=== PATIENT | male | born 1990 | race Caucasian/White ===

== ENCOUNTER 2018-07-14 11:59 | Emergency (ER) | END 2018-07-14 14:10 | disposition home or self-care (01) ==

== ENCOUNTER 2018-08-31 10:31 | Emergency (ER) | END 2018-08-31 11:14 | disposition home or self-care (01) ==

== ENCOUNTER 2018-10-26 13:02 | Emergency (ER) | END 2018-10-26 14:20 | disposition home or self-care (01) ==

== ENCOUNTER 2019-01-12 11:55 | Emergency (ER) | payer OTHER ==
[~2019-01-12] VITALS: Ht 175.3 cm; Wt 88.0 kg
[~2019-01-12 11:55] MED LIST: CETI10CA PO; FLUT9.9S NASAL; GABA-526 PO; GABA-528 PO; GUAI5SYR2 PO; IBUP-1542 PO; LYRI100 PO; MED4DP PO
[2019-01-12 11:58] VITALS: BP 131/88; PULSE 81; RESP 20; Ht 175.3 cm; Wt 88.0 kg
[2019-01-12] MEDS ORDERED: ESCI20TA PO (14:49)
[2019-01-12] MEDS ORDERED: GABA-528 PO (14:49)
--- NOTE | 2019-01-12 14:59 | ERD ---
ER Documentation Chief Complaint Chief Complaint Patient here for medication refill HPI 28-year-old male presenting form medication refill of his HIV medications. Patient is asking for a Biktarvy Daily medicine, gabapentin 800 mg twice daily and Lexapro 20 mg daily. Patient last took his medication yesterday. Patient has positive HIV and states his viral count is around 30,000 currently. Patient does have a HIV specialist however missed his last appointment and is unable to get in before January 23. He denies any other medical problems at this time. NKDA. Surgical history is for her surgery as a child. Social history smokes 7 cigarettes a day. ROS All systems reviewed and are negative except as per history of present illness. Medications Home Meds Active Scripts Escitalopram Oxalate* (Lexapro*) 20 Mg Tablet, 20 MG PO DAILY, #30 TAB Prov:RUFUS KASPER PA-C 01/12/19 Gabapentin* (Gabapentin*) 800 Mg Tablet, 800 MG PO BID, #60 TAB Prov:RUFUS KASPER PA-C 01/12/19 Gabapentin* (Gabapentin*) 600 Mg Tablet, 600 MG PO TID for Pain for 30 Days, #90 TAB Prov:BULL SNYDER 10/26/18 Gabapentin* (Gabapentin*) 800 Mg Tablet, 800 MG PO BID, #30 TAB Prov:RICHARD HECTOR PA-C 08/31/18 Guaifenesin-Dextromethorphan* (Robitussin* DM) 100MG/10MG/5ML Syrup, 10 ML PO Q6H PRN for COUGH for 5 Days, ML Prov:RICHARD HECTOR PA-C 08/31/18 Fluticasone Propionate (Flonase Allergy Relief) 9.9 Ml [place].susp, 2 SPRAY NASAL DAILY, #1 BOTTLE TO EACH NOSTRIL Prov:RICHARD HECTOR PA-C 08/31/18 Cetirizine Hcl* (Zyrtec*) 10 Mg Capsule, 10 MG PO DAILY, #14 TAB.CHEW Prov:RICHARD HECTOR PA-C 08/31/18 Pregabalin* (Lyrica*) 100 Mg Capsule, 100 MG PO DAILY for 15 Days, CAP Prov:RICHARD HECTOR PA-C 08/31/18 Ibuprofen* (Motrin*) 600 Mg Tab, 600 MG PO Q6, #30 TAB Prov:GETACHEW KAY MILAGROSJay JayEarl 07/14/18 Methylprednisolone* (Medrol* DOSE PACK) 4 Mg/Dose-Pack Tab.ds.pk, 4 MG PO . DIRECTED for 5 Days, PACKET Prov:GETACHEW KAY MILAGROSJay JayEarl 07/14/18 Gabapentin* (Gabapentin*) 600 Mg Tablet, 600 MG PO TID, #90 TAB Prov:GETACHEW KAY MILAGROSSimon 07/14/18 Allergies Allergies: Coded Allergies: No Known Allergy (Unverified , 07/14/18) PMhx/Soc History of Surgery: No Anesthesia Reaction: No Hx Neurological Disorder: No Hx Respiratory Disorders: No Hx Cardiac Disorders: No Hx Psychiatric Problems: No Hx Miscellaneous Medical Probl: Yes (lower back pain, sciatica, HIV+) Hx Alcohol Use: No Hx Substance Use: No Hx Tobacco Use: No Smoking Status: Never smoker FmHx Family History: No diabetes, No coronary disease, No other Physical Exam Vitals Vital Signs Date Temp Pulse Resp B/P (MAP) Pulse Ox O2 O2 Flow FiO2 Time Delivery Rate 01/12/19 98.8 81 20 131/88 98 11:58 (102) Physical Exam GENERAL: The patient is well-appearing, well-nourished, in no acute distress HEENT: Atraumatic. Conjunctivae are pink. Pupils equal, round, and reactive to light. There is no scleral icterus. Tympanic membranes clear bilaterally. Oropharynx clear. NECK: C-spine is soft and supple. There is no meningismus. There is no cervical lymphadenopathy. CHEST: Clear to auscultation bilaterally. There are no rales, wheezes or rhonchi. HEART: Regular rate and rhythm. No murmurs, clicks, rubs or gallops. Procedures/MDM MDM: 28-year-old male presenting for medication refill. I have low suspicion for infectious etiology. Patient will be discharged with medication refill. Patient is told to keep his appointment with primary doctor as previously prescribed. Patient is told symptoms change or worsen to return immediately to the ER. All questions answered at this Departure Diagnosis: Primary Impression: Encounter for medication refill Condition: Stable Patient Instructions: Taking Medicine Safely Referrals: [facility] YOU HAVE RECEIVED A MEDICAL SCREENING EXAM AND THE RESULTS INDICATE THAT YOU DO NOT HAVE A CONDITION THAT REQUIRES URGENT TREATMENT IN THE EMERGENCY DEPARTMENT. FURTHER EVALUATION AND TREATMENT OF YOUR CONDITION CAN WAIT UNTIL YOU ARE SEEN IN YOUR DOCTORS OFFICE WITHIN THE NEXT 1-2 DAYS. IT IS YOUR RESPONSIBILITY TO MAKE AN APPOINTMENT FOR FOLOW-UP CARE. IF YOU HAVE A PRIMARY DOCTOR --you should call your primary doctor and schedule an appointment IF YOU DO NOT HAVE A PRIMARY DOCTOR YOU CAN CALL OUR PHYSICIAN REFERRAL HOTLINE AT IF YOU CAN NOT AFFORD TO SEE A PHYSICIAN YOU CAN CHOSE FROM THE FOLLOWING [facility] [address] [facility] [address] [address] [facility] [address] [facility] [address] [facility] [address] [facility]. [facility] [address] [facility]. [facility]. [address] Additional Instructions: FOLLOW UP WITH YOUR PRIMARY CARE PHYSICIAN TOMORROW.Return to this facility if you are not improving as expected. RUFUS KASPER PA-C Jan 12, 2019 14:59
== END 2019-01-12 15:19 | disposition home or self-care (01) ==
LOC: FTE 11:55 → E/R 15:19
DX: Z76.0 Encounter for issue of repeat prescription (principal); F17.210 Nicotine dependence, cigarettes, uncomplicated; Z21 Asymptomatic human immunodeficiency virus [HIV] infection status
CPT/HCPCS: 99281

== ENCOUNTER 2019-02-18 10:08 | Emergency (ER) | payer OTHER ==
[~2019-02-18] VITALS: Ht 188 cm; Wt 90.0 kg
[~2019-02-18 10:08] MED LIST changes: +ESCI20TA PO
[2019-02-18 10:13] VITALS: BP 151/96; PULSE 103; RESP 20; Ht 188 cm; Wt 90.0 kg
[2019-02-18] MEDS ORDERED: IBUP-1542 PO (10:40)
[2019-02-18] MEDS ORDERED: ESCI20TA PO (10:40)
[2019-02-18] MEDS ORDERED: GABA300C16 PO (10:40)
--- NOTE | 2019-02-18 10:43 | ERD ---
ER Documentation Chief Complaint Chief Complaint MEDICATION REFILL - HIV MEDICATION HPI 28 male presents the emergency department requesting a refill of his HIV medications. Patient has no acute complaints at this time. ROS All systems reviewed and are negative except as per history of present illness. Medications Home Meds Active Scripts Ibuprofen* (Motrin*) 600 Mg Tab, 600 MG PO Q6H PRN for PAIN AND OR ELEVATED TEMP, #30 TAB Prov:MICKEY MUNROE 02/18/19 Gabapentin* (Gabapentin*) 300 Mg Capsule, 300 MG PO TID, #90 CAP Prov:MICKEY MUNROE 02/18/19 Escitalopram Oxalate* (Lexapro*) 20 Mg Tablet, 20 MG PO DAILY, #30 TAB Prov:MICKEY MUNROE 02/18/19 Escitalopram Oxalate* (Lexapro*) 20 Mg Tablet, 20 MG PO DAILY, #30 TAB Prov:RUFUS KASPER PA-C 01/12/19 Gabapentin* (Gabapentin*) 800 Mg Tablet, 800 MG PO BID, #60 TAB Prov:RUFUS KASPER PA-C 01/12/19 Gabapentin* (Gabapentin*) 600 Mg Tablet, 600 MG PO TID for Pain for 30 Days, #90 TAB Prov:BULL SNYDER 10/26/18 Gabapentin* (Gabapentin*) 800 Mg Tablet, 800 MG PO BID, #30 TAB Prov:RICHARD HECTOR PA-C 08/31/18 Guaifenesin-Dextromethorphan* (Robitussin* DM) 100MG/10MG/5ML Syrup, 10 ML PO Q6H PRN for COUGH for 5 Days, ML Prov:RICHARD HECTOR PA-C 08/31/18 Fluticasone Propionate (Flonase Allergy Relief) 9.9 Ml [place].susp, 2 SPRAY NASAL DAILY, #1 BOTTLE TO EACH NOSTRIL Prov:RICHARD HECTOR PA-C 08/31/18 Cetirizine Hcl* (Zyrtec*) 10 Mg Capsule, 10 MG PO DAILY, #14 TAB.CHEW Prov:RICHARD HECTOR PA-C 08/31/18 Pregabalin* (Lyrica*) 100 Mg Capsule, 100 MG PO DAILY for 15 Days, CAP Prov:RICHARD HECTOREzequiel SPANN 08/31/18 Ibuprofen* (Motrin*) 600 Mg Tab, 600 MG PO Q6, #30 TAB Prov:GETACHEW KAY PA-C 07/14/18 Methylprednisolone* (Medrol* DOSE PACK) 4 Mg/Dose-Pack Tab.ds.pk, 4 MG PO . DIRECTED for 5 Days, PACKET Prov:GETACHEW KAY PA-C 07/14/18 Gabapentin* (Gabapentin*) 600 Mg Tablet, 600 MG PO TID, #90 TAB Prov:ELIZA GETACHEW SPANN 07/14/18 Allergies Allergies: Coded Allergies: No Known Allergy (Unverified , 07/14/18) PMhx/Soc History of Surgery: No Anesthesia Reaction: No Hx Neurological Disorder: No Hx Respiratory Disorders: No Hx Cardiac Disorders: No Hx Psychiatric Problems: No Hx Miscellaneous Medical Probl: Yes (lower back pain, sciatica, HIV+) Hx Alcohol Use: No Hx Substance Use: No Hx Tobacco Use: No Physical Exam Vitals Vital Signs Date Temp Pulse Resp B/P (MAP) Pulse Ox O2 O2 Flow FiO2 Time Delivery Rate 02/18/19 98.8 103 20 151/96 100 10:13 (114) Physical Exam General: well developed, well nourished, in no distress. Neuro: Normal speech, gait, balance Procedures/MDM Patient was taken to a room, seen and examined Medical decision making: Medical screening examination was completed showing no evidence of emergent medical condition. His medications were refilled for him and he was discharged home. Departure Diagnosis: Primary Impression: Encounter for medication refill Condition: Stable Patient Instructions: Taking Medicine Safely MICKEY MUNROE Feb 18, 2019 10:43
== END 2019-02-18 10:45 | disposition home or self-care (01) ==
LOC: FTE 10:08
DX: Z76.0 Encounter for issue of repeat prescription (principal); Z21 Asymptomatic human immunodeficiency virus [HIV] infection status
CPT/HCPCS: 99281

== ENCOUNTER 2019-04-03 09:15 | Emergency (ER) | payer OTHER ==
[~2019-04-03] VITALS: Ht 188 cm; Wt 89.0 kg
[~2019-04-03 09:15] MED LIST changes: +GABA300C16 PO
[2019-04-03 09:18] VITALS: BP 141/64; PULSE 99; RESP 16; Ht 188 cm; Wt 89.0 kg
[2019-04-03] MEDS ORDERED: ESCI20TA PO (09:54)
[2019-04-03] MEDS ORDERED: GABA-528 PO (09:54)
--- NOTE | 2019-04-03 10:35 | ERD ---
ER Documentation Chief Complaint Chief Complaint pt is bib self for refill of bikarkeaton,lexapro,neurotin HPI 28-year-old male with a past medical history of HIV, chronic back pain presents the ED for medication refill. Patient reports that he has an appointment with his physician on April 20, 2019. States that he is been taking gabapentin 800 twice daily for his chronic back pain and neuropathy. States that he takes Biktarbvy daily for his HIV. States that his last CD4 count was 570. Reports that he has undetectable viral load. Reports he also takes Lexapro 20 mg. States that he would like a refill on these medications. Denies any chest pain, shortness of breath, nausea vomiting, diarrhea, neck stiffness, fever, chills. Denies any saddle anesthesia, urine or bowel incontinence. ROS All systems reviewed and are negative except as per history of present illness. Medications Home Meds Active Scripts Escitalopram Oxalate* (Lexapro*) 20 Mg Tablet, 20 MG PO DAILY, #30 TAB Prov:TREVER CASTAÑEDA PA-C 04/03/19 Gabapentin* (Gabapentin*) 800 Mg Tablet, 800 MG PO BID, #30 TAB Prov:TREVER CASTAÑEDA PA-C 04/03/19 Ibuprofen* (Motrin*) 600 Mg Tab, 600 MG PO Q6H PRN for PAIN AND OR ELEVATED TEMP, #30 TAB Prov:MICKEY MUNROE 02/18/19 Gabapentin* (Gabapentin*) 300 Mg Capsule, 300 MG PO TID, #90 CAP Prov:MICKEY MUNROE 02/18/19 Escitalopram Oxalate* (Lexapro*) 20 Mg Tablet, 20 MG PO DAILY, #30 TAB Prov:MICKEY MUNROE 02/18/19 Escitalopram Oxalate* (Lexapro*) 20 Mg Tablet, 20 MG PO DAILY, #30 TAB Prov:RUFUS KASPER PA-C 01/12/19 Gabapentin* (Gabapentin*) 800 Mg Tablet, 800 MG PO BID, #60 TAB Prov:RUFUS KASPER PA-C 01/12/19 Gabapentin* (Gabapentin*) 600 Mg Tablet, 600 MG PO TID for Pain for 30 Days, #90 TAB Prov:BULL SNYDER 10/26/18 Gabapentin* (Gabapentin*) 800 Mg Tablet, 800 MG PO BID, #30 TAB Prov:RICHARD HECTOR PA-C 08/31/18 Guaifenesin-Dextromethorphan* (Robitussin* DM) 100MG/10MG/5ML Syrup, 10 ML PO Q6H PRN for COUGH for 5 Days, ML Prov:RICHARD HECTOR PA-C 08/31/18 Fluticasone Propionate (Flonase Allergy Relief) 9.9 Ml [place].susp, 2 SPRAY NASAL DAILY, #1 BOTTLE TO EACH NOSTRIL Prov:RICHARD HECTOR PA-C 08/31/18 Cetirizine Hcl* (Zyrtec*) 10 Mg Capsule, 10 MG PO DAILY, #14 TAB.CHEW Prov:RICHARD HECTOR PA-C 08/31/18 Pregabalin* (Lyrica*) 100 Mg Capsule, 100 MG PO DAILY for 15 Days, CAP Prov:RICHARD HECTOR PA-C 08/31/18 Ibuprofen* (Motrin*) 600 Mg Tab, 600 MG PO Q6, #30 TAB Prov:GETACHEW KAY PA-C 07/14/18 Methylprednisolone* (Medrol* DOSE PACK) 4 Mg/Dose-Pack Tab.ds.pk, 4 MG PO . DIRECTED for 5 Days, PACKET Prov:GETACHEW KAY PA-C 07/14/18 Gabapentin* (Gabapentin*) 600 Mg Tablet, 600 MG PO TID, #90 TAB Prov:GETACHEW KAY PA-C 07/14/18 Allergies Allergies: Coded Allergies: No Known Allergy (Unverified , 07/14/18) PMhx/Soc Medical and Surgical Hx: pt denies Surgical Hx History of Surgery: No Anesthesia Reaction: No Hx Neurological Disorder: No Hx Respiratory Disorders: No Hx Cardiac Disorders: No Hx Psychiatric Problems: Yes (depression, anxiety ) Hx Miscellaneous Medical Probl: Yes (sciatica, HIV+) Hx Alcohol Use: No (s) Hx Substance Use: No Hx Tobacco Use: Yes Smoking Status: Current some day smoker FmHx Family History: No diabetes, No coronary disease Physical Exam Vitals Vital Signs Date Temp Pulse Resp B/P (MAP) Pulse Ox O2 O2 Flow FiO2 Time Delivery Rate 04/03/19 98.3 99 16 141/64 100 09:18 (89) Physical Exam Const: [id number]-[id number], well-nourished. In no acute distress. Head: Atraumatic, normocephalic Eyes: Normal Conjunctiva without injection ENT: Normal external ear, nose and mouth. Neck: Full range of motion. No meningismus. Resp: Clear to auscultation bilaterally. No wheezing, rhonchi, rales, or crackles. No accessory muscle use. No retractions. Cardio: Regular rate and rhythm, no murmurs Skin: No petechiae or rashes Back: No midline tenderness. No CVA tenderness. Ext: No cyanosis, or edema. Cap refill less than 2 seconds. Distal pulses intact bilaterally. Neur: Awake and alert. Normal gait and coordination. Muscle strength 5/5. Sensation intact bilaterally. Psych: Normal Mood and Affect Procedures/MDM 28-year-old male patient with a past medical history of HIV, chronic back pain presents the ED for a medication refill. Patient is afebrile and nontoxic- appearing. Low suspicion for acute myocardial infarction, pneumothorax, pericarditis, myocarditis, endocarditis, pneumonia, cardiac tamponade, pulmonary embolism, pleural effusion, AAA, aortic dissection, Boerhaave's syndrome, cardiac dysrhythmias,meningitis, intracranial bleed, seizure, stroke, TIA or other emergent conditions. Diagnosis:Encounter for Medication Refill Discharge medications: Biktarvy, Lexapro, Gabapentin Follow up with primary care physician in 1-2 days. Instructed patient to return to the ED sooner for any worsening symptoms. Patient's questions were answered. Patient is hemodynamically stable. Patient understood and agreed with discharge plan. Patient discharged stable. Disclaimer: Inadvertent spelling and grammatical errors are likely due to EHR/dictation software use and do not reflect on the overall quality of patient care. Also, please note that the electronic time recorded on this note does not necessarily reflect the actual time of the patient encounter. Departure Diagnosis: Primary Impression: Encounter for medication refill Condition: Stable Patient Instructions: Taking Medicine Safely, Understanding HIV and AIDS, Back Pain (Acute Or Chronic) Referrals: [facility] YOU HAVE RECEIVED A MEDICAL SCREENING EXAM AND THE RESULTS INDICATE THAT YOU DO NOT HAVE A CONDITION THAT REQUIRES URGENT TREATMENT IN THE EMERGENCY DEPARTMENT. FURTHER EVALUATION AND TREATMENT OF YOUR CONDITION CAN WAIT UNTIL YOU ARE SEEN IN YOUR DOCTORS OFFICE WITHIN THE NEXT 1-2 DAYS. IT IS YOUR RESPONSIBILITY TO MAKE AN APPOINTMENT FOR FOLOW-UP CARE. IF YOU HAVE A PRIMARY DOCTOR --you should call your primary doctor and schedule an appointment IF YOU DO NOT HAVE A PRIMARY DOCTOR YOU CAN CALL OUR PHYSICIAN REFERRAL HOTLINE AT IF YOU CAN NOT AFFORD TO SEE A PHYSICIAN YOU CAN CHOSE FROM THE FOLLOWING [facility] [address] [facility] [address] [facility] [address] [facility] [address] [facility] [address] [facility]. [facility] [address] [facility]. [facility] YOU HAVE RECEIVED A MEDICAL SCREENING EXAM AND THE RESULTS INDICATE THAT YOU DO NOT HAVE A CONDITION THAT REQUIRES URGENT TREATMENT IN THE EMERGENCY DEPARTMENT. FURTHER EVALUATION AND TREATMENT OF YOUR CONDITION CAN WAIT UNTIL YOU ARE SEEN IN YOUR DOCTORS OFFICE WITHIN THE NEXT 1-2 DAYS. IT IS YOUR RESPONSIBILITY TO MAKE AN APPOINTMENT FOR FOLOW-UP CARE. IF YOU HAVE A PRIMARY DOCTOR --you should call your primary doctor and schedule and appointment IF YOU DO NOT HAVE A PRIMARY DOCTOR YOU CAN CALL OUR PHYSICIAN REFERRAL HOTLINE AT . IF YOU CAN NOT AFFORD TO SEE A PHYSICIAN YOU CAN CHOSE FROM THE FOLLOWING [facility]: [facility] [address] [place] [address] [facility] [address] [place] [address] [facility] [address] [place] [address] [facility] Additional Instructions: Call your primary care doctor TOMORROW for an appointment during the next 2-3 days.See the doctor sooner or return here if your condition worsens before your appointment time. TREVER CASTAÑEDA PA-C April 03, 2019 10:35
== END 2019-04-03 10:22 | disposition home or self-care (01) ==
LOC: FTE 09:15
DX: Z76.0 Encounter for issue of repeat prescription (principal); F17.210 Nicotine dependence, cigarettes, uncomplicated; Z21 Asymptomatic human immunodeficiency virus [HIV] infection status
CPT/HCPCS: 99281

== ENCOUNTER 2019-05-22 09:14 | Emergency (ER) | payer OTHER ==
[~2019-05-22] VITALS: Ht 188 cm; Wt 92.0 kg
[2019-05-22 09:18] VITALS: BP 136/82; PULSE 78; RESP 18; Ht 188 cm; Wt 92.0 kg
[2019-05-22] MEDS ORDERED: GABA300C16 PO (09:41)
--- NOTE | 2019-05-22 09:41 | ERD ---
ER Documentation Chief Complaint Chief Complaint pt is bib self for med refill missed appt with PMD HPI Patient is a 29 years old male with past medical history of HIV and sciatica presenting to the clinic for medication refill. Patient is requesting refills for gabapentin, Lexapro, and HIV medication. Patient reports following up with his PCP in [place]. Patient denies all review of system. Patient reports his viral load is currently detectable 3 months ago when he has labs from. ROS All systems reviewed and are negative except as per history of present illness. Medications Home Meds Active Scripts Escitalopram Oxalate* (Lexapro*) 20 Mg Tablet, 20 MG PO DAILY, #30 TAB Prov:TREVER CASTAÑEDA PA-C 04/03/19 Gabapentin* (Gabapentin*) 800 Mg Tablet, 800 MG PO BID, #30 TAB Prov:TREVER CASTAÑEDA PA-C 04/03/19 Ibuprofen* (Motrin*) 600 Mg Tab, 600 MG PO Q6H PRN for PAIN AND OR ELEVATED TEMP, #30 TAB Prov:MICKEY MUNROE 02/18/19 Gabapentin* (Gabapentin*) 300 Mg Capsule, 300 MG PO TID, #90 CAP Prov:MICKEY MUNROE 02/18/19 Escitalopram Oxalate* (Lexapro*) 20 Mg Tablet, 20 MG PO DAILY, #30 TAB Prov:MICKEY MUNROE 02/18/19 Escitalopram Oxalate* (Lexapro*) 20 Mg Tablet, 20 MG PO DAILY, #30 TAB Prov:RUFUS KASPER PA-C 01/12/19 Gabapentin* (Gabapentin*) 800 Mg Tablet, 800 MG PO BID, #60 TAB Prov:RUFUS KASPER PA-C 01/12/19 Gabapentin* (Gabapentin*) 600 Mg Tablet, 600 MG PO TID for Pain for 30 Days, #90 TAB Prov:BULL SNYDER 10/26/18 Gabapentin* (Gabapentin*) 800 Mg Tablet, 800 MG PO BID, #30 TAB Prov:RIHCARD HECTOR PA-C 08/31/18 Guaifenesin-Dextromethorphan* (Robitussin* DM) 100MG/10MG/5ML Syrup, 10 ML PO Q6H PRN for COUGH for 5 Days, ML Prov:RICHARD HECTOR PA-C 08/31/18 Fluticasone Propionate (Flonase Allergy Relief) 9.9 Ml [place].susp, 2 SPRAY NASAL DAILY, #1 BOTTLE TO EACH NOSTRIL Prov:KRUNALRICHARD Clarke PA-C 08/31/18 Cetirizine Hcl* (Zyrtec*) 10 Mg Capsule, 10 MG PO DAILY, #14 TAB.CHEW Prov:KRUNALRICHARD Clarke PA-C 08/31/18 Pregabalin* (Lyrica*) 100 Mg Capsule, 100 MG PO DAILY for 15 Days, CAP Prov:RICHARD HECTOR PA-C 08/31/18 Ibuprofen* (Motrin*) 600 Mg Tab, 600 MG PO Q6, #30 TAB Prov:GETACHEW KAY PA-C 07/14/18 Methylprednisolone* (Medrol* DOSE PACK) 4 Mg/Dose-Pack Tab.ds.pk, 4 MG PO . DI RECTED for 5 Days, PACKET Prov:GETACHEW KAY PA-C 07/14/18 Gabapentin* (Gabapentin*) 600 Mg Tablet, 600 MG PO TID, #90 TAB Prov:GETACHEW KAY PA-C 07/14/18 Allergies Allergies: Coded Allergies: No Known Allergy (Unverified , 07/14/18) PMhx/Soc History of Surgery: No Anesthesia Reaction: No Hx Neurological Disorder: No Hx Respiratory Disorders: No Hx Cardiac Disorders: No Hx Psychiatric Problems: Yes (depression, anxiety ) Hx Miscellaneous Medical Probl: Yes (sciatica, HIV+) Hx Alcohol Use: No (s) Hx Substance Use: No Hx Tobacco Use: Yes FmHx Family History: No diabetes, No coronary disease, No other Physical Exam Vitals Vital Signs Date Temp Pulse Resp B/P (MAP) Pulse Ox O2 O2 Flow FiO2 Time Delivery Rate 05/22/19 98.3 78 18 136/82 98 09:18 (100) Physical Exam Const: No acute distress Head: Atraumatic Eyes: Normal Conjunctiva ENT: Normal External Ears, Nose and Mouth. Neck: Full range of motion. No meningismus. Resp: Clear to auscultation bilaterally Cardio: Regular rate and rhythm, no murmurs Neur: Awake and alert Psych: Normal Mood and Affect Procedures/MDM Patient was seen and evaluated for medication refills. Patient was advised that provider will not refill HIV and Lexapro medication in ED. Patient was advised about importance of medication adherence and strict PCPs follow-up for HIV. Patient was also advised about importance of three-month lab work. Patient is stable ready for discharge. Patient will be discharged with gabapentin 600 mg 3 times daily. Follow-up with PCP. Departure Diagnosis: Primary Impression: Encounter for medication refill Condition: Stable Patient Instructions: Taking Medicine Safely Referrals: [facility] Additional Instructions: Patient advised to return to the ED immediately for new or worsening symptoms. Patient advised to follow up with primary care provider in the next 24-48 hours. Patient verbalized understanding and agrees with treatment plan and course of action. If patient has no primary care they may follow up with [facility] [address] [place] [id number] or [facility] [id number] [place] [address] or [facility] [address] [place] [address] GURJIT YORK PA-C May 22, 2019 09:41
== END 2019-05-22 09:55 | disposition home or self-care (01) ==
LOC: FTE 09:14
DX: Z76.0 Encounter for issue of repeat prescription (principal); Z87.891 Personal history of nicotine dependence; Z21 Asymptomatic human immunodeficiency virus [HIV] infection status
CPT/HCPCS: 99281